=== PATIENT | female | born 1940 | race Caucasian/White ===

== ENCOUNTER 2024-04-25 07:23 | Inpatient (IN) ==
--- NOTE | 2024-03-24 08:51 | PAT Medication Instructions ---
Medication Instructions Date of Service March 24, 2024 Home Medications amlodipine 2.5 mg tablet 2.5 mg PO QAM ascorbic acid (vitamin C) 500 mg tablet (Vitamin C) 500 mg PO QAM budesonide-formoterol HFA 160 mcg-4.5 mcg/actuation aerosol inhaler (Symbicort) 1 inh inhalation DAILY cholecalciferol (vitamin D3) 25 mcg (1,000 unit) tablet (Vitamin D3) 25 mcg PO QAM hydrochlorothiazide 12.5 mg tablet 12.5 mg PO QAM hydroxychloroquine 200 mg tablet (Plaquenil) 300 mg PO QAM losartan 100 mg tablet 100 mg PO QAM hghcgbqitmuf-qbiophgf-aazwir tablet 1 tab PO QAM potassium chloride 20 mEq tablet,extended release(part/cryst) (Klor-Con M) 20 meq PO QAM prednisone 5 mg tablet 5 mg PO QAM tiotropium bromide 18 mcg capsule with inhalation device (Spiriva with HandiHaler) 1 cap inhalation DAILY zinc 1 tab PO QAM Continue as directed budesonide-formoterol HFA 160 mcg-4.5 mcg/actuation aerosol inhaler (Symbicort) 1 inh inhalation DAILY tiotropium bromide 18 mcg capsule with inhalation device (Spiriva with HandiHaler) 1 cap inhalation DAILY ASK your prescriber and surgeon hydroxychloroquine 200 mg tablet (Plaquenil) 300 mg PO QAM DO NOT take the morning of surgery ascorbic acid (vitamin C) 500 mg tablet (Vitamin C) 500 mg PO QAM cholecalciferol (vitamin D3) 25 mcg (1,000 unit) tablet (Vitamin D3) 25 mcg PO QAM hydrochlorothiazide 12.5 mg tablet 12.5 mg PO QAM losartan 100 mg tablet 100 mg PO QAM vqfcivphzaxu-mzmvcwku-pzvmmz tablet 1 tab PO QAM potassium chloride 20 mEq tablet,extended release(part/cryst) (Klor-Con M) 20 meq PO QAM zinc 1 tab PO QAM Take morning of surgery With a small sip of water, OTHERWISE NOTHING TO EAT OR DRINK AFTER MIDNIGHT: amlodipine 2.5 mg tablet 2.5 mg PO QAM prednisone 5 mg tablet 5 mg PO QAM Other Notes If you have any questions please call us at [phone] or [phone] or [phone] or [phone]
--- NOTE | 2024-04-01 09:30 | Anesthesiology Consultation ---
Date of Service April 01, 2024 Assessment & Plan (1) Encounter for pre-operative examination: - Infectious disease screening: Per assessment on 04/01/24- No known recent infectious disease contacts or current infectious disease symptoms. - Patient acceptable risk for surgery pending surgeon-ordered PCP preop evaluation (Dr. Kwadwo Marmolejo/[facility], appt 04/07). Chart Review Chart Review: Patient seen in Pre Admission Testing Teaching & Discussion Pre-Anesthesia Teaching/Discussion Notes: Instructed NPO after midnight before surgery,except medications with 15 cc of water. Medication instructions provided according to the PAT guidelines. History Surgery Operation Date: 04/25/24 09:05 Proposed Procedures p L4-S1 Decompression and Fusion with Spinal Cord Monitoring - Jj Almodovar, Height/Weight Height: 5 ft 1 in Weight: 53.9 kg Allergies Allergy/AdvReac Type Severity Reaction Status Date / Time morphine AdvReac Severe respiratory Verified 03/23/24 12:52 depression Medications Home Medications Medication Instructions Recorded Confirmed Last Taken amlodipine 2.5 mg tablet 2.5 mg PO QAM 03/23/24 03/23/24 Unknown ascorbic acid (vitamin C) 500 mg 500 mg PO QAM 03/23/24 03/23/24 Unknown tablet (Vitamin C) budesonide-formoterol HFA 160 1 inh inhalation DAILY 03/23/24 03/23/24 Unknown mcg-4.5 mcg/actuation aerosol inhaler (Symbicort) cholecalciferol (vitamin D3) 25 25 mcg PO QAM 03/23/24 03/23/24 Unknown mcg (1,000 unit) tablet (Vitamin D3) hydrochlorothiazide 12.5 mg tablet 12.5 mg PO QAM 03/23/24 03/23/24 Unknown hydroxychloroquine 200 mg tablet 300 mg PO QAM 03/23/24 03/23/24 Unknown (Plaquenil) losartan 100 mg tablet 100 mg PO QAM 03/23/24 03/23/24 Unknown mazudwrxvuln-qefsvxer-ratgoa tablet 1 tab PO QAM 03/23/24 03/23/24 Unknown potassium chloride 20 mEq 20 meq PO QAM 03/23/24 03/23/24 Unknown tablet,extended release(part/cryst) (Klor-Con M) prednisone 5 mg tablet 5 mg PO QAM 03/23/24 03/23/24 Unknown tiotropium bromide 18 mcg capsule 1 cap inhalation DAILY 03/23/24 03/23/24 Unknown with inhalation device (Spiriva with HandiHaler) zinc 1 tab PO QAM 03/23/24 03/23/24 Unknown Fish Oil 1 tab PO DAILY 04/01/24 04/01/24 Unknown hydromorphone 4 mg tablet 4 mg PO Q4H PRN Pain 04/01/24 04/01/24 Unknown (Dilaudid) Past Medical History Medical History History of lung cancer 2012, LL lobectomy (no chemo or radiation) Hypertension Rheumatoid arthritis Exercise / Class Metabolic Activity III < 4 Walking/Shop/Light housework Past Surgical History Surgical History Family history of reaction to anesthesia Sister: N/V History of bunionectomy of both great toes History of carpal tunnel surgery of left wrist History of cataract surgery R/L History of cholecystectomy History of hysterectomy History of lobectomy of lung left lower History of repair of hiatal hernia History of tonsillectomy History of total knee replacement bilateral and right side x2 Past Anesthesia History No Hx of Anesthesia Complications * Sister: N/V History of PONV No Hx of PONV and No Hx of Motion Sickness Social History Smoking Status: Never smoker Do You Dip or Chew Tobacco: No Hx Alcohol Use: No Hx Substance Use: No substance use type: does not use Review of Systems Patient denies chest pain, shortness of breath, fever, chills, cough, wheezing, palpitations. Physical Exam Vital Signs BP 112/62 P 76 TEMP 99.0 SP02 96%RA RESP 16 Physical Full cervical extension range of motion. Full TMJ range of motion. TMD 3 finger breaths Mallampati Score III Dentition: upper partial Lungs: clear throughout to auscultation Cardiac: regular rate and rhythm, no murmurs noted Spine: normal Carotid arteries: negative bruit Extremities: no LE edema Lab Results Anesthesia Preop Results Results Anesthesia Widget: WBC 8.51 K/ul (4.8-10.8) 04/01/24 Hgb 11.4 g/dl (12.0-16.0) L 04/01/24 Hct 35.1 % (37.0-47.0) L 04/01/24 Plt 239 K/uL (130-400) 04/01/24 Na 139 mmol/L (136-145) 04/01/24 K 3.7 mmol/L (3.5-5.1) 04/01/24 Cl 104 mmol/L (98-107) 04/01/24 CO2 28 mmol/L (21-32) 04/01/24 BUN 17 mg/dl (6-23) 04/01/24 Creat 1.19 mg/dl (0.6-1.2) 04/01/24 Glucose Level 92 mg/dl (70-99(Fasting)) 04/01/24 PT 11.3 Seconds (9.0-12.0) 04/01/24 PTT 26 Seconds (21-31) 04/01/24 INR 1.0 (0.9-1.1) 04/01/24 Urine Color Yellow 04/01/24 Urine Appearance Clear (Clear) 04/01/24 Urine pH 7.0 (4.5-7.5) 04/01/24 Urine Specific [place] 1.011 (1.000-1.030) 04/01/24 Urine Protein Negative (Negative) 04/01/24 Urine Glucose (UA) Negative (Negative) 04/01/24 Urine Ketones Negative (Negative) 04/01/24 Urine Blood Negative (Negative) 04/01/24 Urine Nitrite Negative (Negative) 04/01/24 Urine Bilirubin Negative (Negative) 04/01/24 Urine Urobilinogen Negative (Negative) 04/01/24 Urine Leukocyte Esterase 1+ (Negative) H 04/01/24 Urine WBC (Auto) 0-5 /hpf (0-5) 04/01/24 Urine RBC (Auto) 0-2 /hpf (0-2) 04/01/24 Urine Hyaline Casts (Auto) 0-2 /lpf (0-2) 04/01/24 Urine Epithelial Cells (Auto) 0-2 /hpf (0-2) 04/01/24 Urine Bacteria (Auto) None Seen (None Seen) 04/01/24 Blood Type O Positive 04/01/24 Antibody Screen NEGATIVE 04/01/24 Testing Electrocardiogram Date: 04/01/24 Findings: + NSR @ (69) Chest X-Ray Date: 04/01/24 FINDINGS: Lung volumes are normal. There is no pneumothorax. Blunting of the left costophrenic angle is noted. Mild left basilar opacity is present. There is no evidence for pulmonary edema. No definite consolidation to suggest pneumonia. Cardiomediastinal silhouette is normal. Old left eighth rib fracture is incidentally noted. IMPRESSION: No acute cardiopulmonary findings. Mild left basilar opacity which likely reflects atelectasis or epicardial fat pad. Other Testing Cervical spine xray Date: 04/01/24 IMPRESSION: 1. No evidence for cervical spine instability during flexion or extension. 2. Severe facet arthrosis within the cervical spine. Mild degenerative disc disease. 3. No cervical spine fractures.
[2024-04-25] MEDS ORDERED: ONDANSETRON INJ 2 MG/ML 2 ML VIAL ONE (08:16)
[2024-04-25] MEDS ORDERED: LIDOCAINE 2% 2 ML VIAL/AMP(20MG/ML) INFIL ONE (08:16)
[2024-04-25] MEDS ORDERED: DEXAMETHASONE SOD INJ 4 MG/ML VIAL ONE (08:16)
[2024-04-25] MEDS ORDERED: PROPOFOL IV EMULSION 10 MG/ML 20 ML VIAL IV ONE (08:16)
[2024-04-25] MEDS ORDERED: fentaNYL citrate PF 100 MCG/2 ML VIAL ONE (08:16)
[2024-04-25] MEDS: LR 15ML/HR IV SCH (08:20)
[2024-04-25] MEDS: CeleBREX 200 MG CAP PO SCH (08:21)
[2024-04-25] MEDS: GABAPENTIN 300 MG CAP PO SCH (08:21)
[2024-04-25] MEDS: ACETAMINOPHEN 500 MG TAB PO SCH (08:21)
[2024-04-25] MEDS: LR 60ML/HR IV SCH (08:22)
--- NOTE | 2024-04-25 08:52 | History & Physical Bridge Note ---
Date of Service April 25, 2024 History & Physical Bridge Note I have examined the patient, reviewed the History & Physical and in the interval since the performance of the History & Physical I have noted the following changes of clinical significance: no changes noted
--- NOTE | 2024-04-25 08:53 | History & Physical Report ---
Date of Service April 25, 2024 Assessment & Plan (1) Neurogenic claudication due to lumbar spinal stenosis: Plan: L4-S1 decompression and fusion History of Present Illness Chief Complaint: Back and bilateral leg pain Primary Care Provider: Kwadwo Marmolejo This is an 83-year-old female who presents with chronic persistent back and leg pain after failing course of nonoperative care is here for surgical intervention. Allergies Allergy/AdvReac Type Severity Reaction Status Date / Time morphine AdvReac Severe respiratory Verified 04/25/24 07:47 depression Home Medications Medication Instructions Recorded Confirmed Type amlodipine 2.5 mg tablet 2.5 mg PO QAM 03/23/24 04/25/24 History ascorbic acid (vitamin C) 500 mg 500 mg PO QAM 03/23/24 04/25/24 History tablet (Vitamin C) budesonide-formoterol HFA 160 1 inh inhalation DAILY 03/23/24 04/25/24 History mcg-4.5 mcg/actuation aerosol inhaler (Symbicort) cholecalciferol (vitamin D3) 25 25 mcg PO QAM 03/23/24 04/25/24 History mcg (1,000 unit) tablet (Vitamin D3) hydrochlorothiazide 12.5 mg tablet 12.5 mg PO QAM 03/23/24 04/25/24 History hydroxychloroquine 200 mg tablet 300 mg PO QAM 03/23/24 04/25/24 History (Plaquenil) losartan 100 mg tablet 100 mg PO QAM 03/23/24 04/25/24 History dwgtqfyytbki-xhaowafo-sboeji tablet 1 tab PO QAM 03/23/24 04/25/24 History potassium chloride 20 mEq 20 meq PO QAM 03/23/24 04/25/24 History tablet,extended release(part/cryst) (Klor-Con M) prednisone 5 mg tablet 5 mg PO QAM 03/23/24 04/25/24 History tiotropium bromide 18 mcg capsule 1 cap inhalation DAILY 03/23/24 04/25/24 History with inhalation device (Spiriva with HandiHaler) zinc 1 tab PO QAM 03/23/24 04/25/24 History Fish Oil 1 tab PO DAILY 04/01/24 04/25/24 History hydromorphone 4 mg tablet 4 mg PO Q4H PRN Pain 04/01/24 04/25/24 History (Dilaudid) Past Med/Surg History Problem List (Updated 04/25/24 @ 08:53 by Jj Almodovar DO) Neurogenic claudication due to lumbar spinal stenosis Encounter for pre-operative examination Medical History History of lung cancer 2012, LL lobectomy (no chemo or radiation) Hypertension Rheumatoid arthritis Surgical History Family history of reaction to anesthesia Sister: N/V History of bunionectomy of both great toes History of carpal tunnel surgery of left wrist History of cataract surgery R/L History of cholecystectomy History of hysterectomy History of lobectomy of lung left lower History of repair of hiatal hernia History of tonsillectomy History of total knee replacement bilateral and right side x2 Social History (System 03/21/24 @ 14:50 by Tammi Riojas) Smoking Status: Never smoker Second Hand Exposure: No; Do You Dip or Chew Tobacco: No; Tobacco Cessation Education Requested by Patient: No Hx Alcohol Use: No Hx Substance Use: No Preferred Language: Frisian Client Advocate Required: No Beliefs That Will Affect Care: None Current Living Situation: Alone Other Information That Helps Us Care for You: No Feels Safe at Home: Yes Safety Concerns: Feels Safe At This Time Assistive Devices: Denture - Upper, Glasses and Walker Physical Exam Physical Exam: Patient is alert and oriented Heart regular in rhythm Lungs clear Results & Data Results & Data Vital Signs (Past 12 Hours) Vital Signs Temp Pulse Resp BP Pulse Ox O2 Del Method 04/25/24 07:46 36.6 C 88 20 166/83 H 99 Room Air
[2024-04-25] MEDS ORDERED: PROMETHAZINE HCL 6.25 MG in SODIUM CHLORIDE 0.9% 50 ML IV PRN (09:04)
[2024-04-25] MEDS ORDERED: ONDANSETRON INJ 2 MG/ML 2 ML VIAL IV PRN ×2 (09:04→13:31)
[2024-04-25] MEDS ORDERED: HYDROmorphone INJ 2 MG/ML SYR/VIAL IV PRN (09:04)
[2024-04-25] MEDS ORDERED: ATROPINE SULFATE 0.1 MG/ML 10ML SYR IV PRN (09:04)
[2024-04-25] MEDS ORDERED: ePHEDrine sulfate 50 MG/ML AMP IV PRN (09:04)
[2024-04-25] MEDS: ceFAZolin 2000MG 2,000 MG/15 ML SYR IV SCH (09:24)
[2024-04-25] MEDS ORDERED: ROCURONIUM BROMIDE 10 MG/ML 5 ML VIAL IV ONE ×6 (09:41→10:57)
[2024-04-25] MEDS ORDERED: SUGAMMADEX SODIUM 200 MG/2 ML VIAL IV ONE (09:45)
[2024-04-25] MEDS ORDERED: ePHEDrine sulfate 50 MG/5 ML SYR ONE (10:06)
[2024-04-25] MEDS: BUPIVACAINE/EPINEPHRINE 0.5% MPF 1:200,000 30 ML VIAL ONE (10:11)
[2024-04-25] MEDS: ceFAZolin 330 MG/ML 1 GM VIAL ONE (10:30)
[2024-04-25] MEDS ORDERED: METOPROLOL TARTRATE 1 MG/ML VIAL IV ONE (10:33)
[2024-04-25] MEDS: FLOSEAL HEMOSTATIC MATRIX 10ML TOP ONE (11:28)
--- NOTE | 2024-04-25 11:39 | Operative Report ---
Post Operative Report Pre & Post Diagnosis Operation Date: 04/25/24 09:05 Pre-Op Diagnosis: Neurogenic claudication due to lumbar spinal stenosis Spondylolisthesis L4-L5 L5-S1 Post-Op Diagnosis: Same I identified the patient and participated in the time-out.: Yes Procedure Operation Date: 04/25/24 09:05 Actual Procedures #1 lumbar decompression bilaterally facetectomies and foraminotomies L3-L4, L4-5 and L5-S1. 2 posterior spinal fusion L4-S1. #3 placed posterior instrumentation L4-S1. #4 interbody fusion L4-L5 L5-S1. #5 placement spiral by 26 mm x 2 at L4-L5 and 11 x 26 mm x 2 at L5-S1. #6 placement locally harvested morselized autograft and posterior gutters. #7 placement is collagen sponge, with Koros in the posterior lateral gutters and os design interbody space. #8 placement of versa wrap of the exposed dura. Surgeon Jj Almodovar, Accounts Receivable Associate Shelley Rahman Estimated Blood Loss 250 Findings Consistent with Post-Op Diagnosis Specimens None Indications This is an 83-year-old female presents problems diagnosis of failed course of nonoperative care is here for surgical invention. Description of Procedure Patient was met with identified informed consent obtained. Patient was then taken to the operative suite underwent intubation placed in a prone position on the Rai table on top of the López frame. All bony promises well-padded I suspected to ensure no external pressure placed upon the. This point the lumbar spine was prepped and draped in the normal sterile fashion. Sharp dissection with the assistance of Bovie cautery performed down to expose the lamina and transverse processes of L4-L5 and the sacral ala bilaterally. From a caudal c ephalad fashion complete laminectomy of L5 was performed including bilateral medial facetectomies and foraminotomies addressing severe spinal stenosis. Then performed a complete laminectomy of L4 to include bilateral medial facetectomies and foraminotomies addressing severe spinal stenosis and lastly partial neurectomy of L3 with bilateral medial facetectomies to address subarticular compression. Pedicle screws then placed in L4-L5 and S1 levels bilaterally with assistance of fluoroscopy and appropriate size dilcia contoured and placed. By way of a transforaminal portion on the right I discectomy of L5-S1 was performed endplates guarded to subcortical bone and bone 11 x 26 mm Spira cage filled with os design bone graft tapped in position. Then proceeded to the left transforaminal region at L5-S1. Discectomy performed endplates guarded to subcortical and bone and a second 11 x 26 mm spiral cage filled with os designed tapped into position. Then proceeded L4-[address] transforaminal position on the left a discectomy was performed endplates guarded to subcortical bleeding bone and 11 x 26 mm Spira cage filled with os design tapped in position. Then proceeded to the transforaminal region at L5-S1 on the right. Discectomy performed endplates guided subcortical main bone and a second 11 x 26 mm Spira cage filled with Oxyzyme tapped into position. The rods were then locked in final position bilaterally. The transverse processes of L4-L5 and sacral ala burred to subcortical bleeding bone. Infuse collagen sponge combined with Koros and locally harvested morselized autograft placed in the posterior lateral gutters. Versa wrap placed over the exposed dura. 15 round LOPEZ drain inserted. The incision was then closed with 1 Vicryl fascia 2-0 Vicryl subcutaneously and 4 Monocryl for final skin closure. Steri-Strips sterile dressing placed. Patient waken taken PACU stable condition. Please note spinal cord monitoring was utilized at the procedure no changes noted. Shelley Rahman was present at the entire surgery The patient positioning complex portion of the surgery and final skin closure. Im ordering 20 grams of Triple [place] Collagen Powder ([id number] [id number]) to treat an incision wound that was caused by a spine procedure. The incision is approximately 2 cm(W) x 4 cm(L) into the joint (D) in size and is a full thickness wound. Triple [place] collagen comes in 1 gram packets so 20 packets were ordered. Given the size of the wound, with light to moderate exudate I chose to order a 20 day supply. The patient will be provided instructions for proper application of the collagen wound kit. The patient will be asked to apply the collagen powder daily and then cover it with sterile dressings dispensed. Collagen was selected as I expect the collagen to attract monocytes and fibroblasts, act as a sacrificial substrate for MMPs, and ultimately proved a matrix for tissue and vessel growth. The collagen will act as a primary dressing in this scenario. It is medically necessary for proper healing of these wounds to improve bioavailability and contact with each wound surface, this is also to help prevent infection of wounds and promote healing ultimately leading to a better healing outcome and limit the risk of infection. I attest to the content of the Intraoperative Record and any orders documented therein. Any exceptions are noted below.
[2024-04-25] MEDS: fentaNYL citrate PF 100 MCG/2 ML VIAL IV PRN (12:13)
--- NOTE | 2024-04-25 12:46 | Anesthesiology Progress Note ---
Date of Service April 25, 2024 Anesthesia Post Procedure Vital Signs Vital Signs: Temp Pulse Resp BP Pulse Ox O2 Del Method O2 Flow Rate 04/25/24 12:30 36.5 C 76 12 146/78 H 95 Nasal Cannula 2 04/25/24 12:20 80 14 131/72 99 Room Air 04/25/24 12:10 76 14 147/71 H 100 Oxymask 4 04/25/24 12:00 76 14 149/76 H 100 Oxymask 4 04/25/24 11:52 36.7 C 61 6 L 125/59 L 100 Oxymask 6 04/25/24 07:46 36.6 C 88 20 166/83 H 99 Room Air Pain Intensity Lower Back: Pain Intensity: 3 Transfer of Care Handoff Completed per policy Notes Mental Status: alert / awake / arousable and participated in evaluation Patient Amnestic to Procedure: Yes Nausea / Vomiting: adequately controlled Pain: adequately controlled Airway Patency, RR, SpO2: stable & adequate BP & HR: stable & adequate Hydration State: stable & adequate Anesthetic Complications: no major complications apparent
--- NOTE | 2024-04-25 13:07 | Fluoroscopy Report ---
FL lumbar spine 2-3V CLINICAL HISTORY: L4-S1 DECOMPRESSION AND FUSION COMPARISON STUDY: None. FLUOROSCOPY TIME: 19 seconds. Ka,r: 8.76 mGy FLUOROSCOPIC IMAGES: 3 FINDINGS: Fluoroscopy was provided during L4-S1 decompression, discectomy and bilateral pedicle screw placement. Hardware is intact. No unexpected radiopaque foreign bodies are present. IMPRESSION: Fluoroscopy providing L4-S1 decompression and fusion. ACT 112: Negative or not required by law. Electronically signed by: Gilmar Latif M.D. 04/25/2024 1:06 PM
[2024-04-25] MEDS ORDERED: MoRPHine SULFATE 2 MG/ML CARP IV PRN (13:31)
[2024-04-25] MEDS ORDERED: METOCLOPRAMIDE HCL INJ 5 MG/ML 2 ML VIAL IV PRN (13:31)
[2024-04-25] MEDS ORDERED: DO NOT ADMINISTER FLU VACCINE PRN (13:31)
[2024-04-25] MEDS ORDERED: hydrOXYzine HCl 25 MG TAB PO PRN (13:31)
[2024-04-25] MEDS ORDERED: LORazepam 2 MG/1 ML VIAL IV PRN (13:31)
[2024-04-25] MEDS ORDERED: bisacodyL 10 MG SUPP PR PRN (13:31)
[2024-04-25] MEDS ORDERED: ACETAMINOPHEN 1,000 MG/100 ML VIAL IV PRN (13:31)
[2024-04-25] MEDS ORDERED: diphenhydrAMINE Capsule 25 MG CAP PO PRN (13:31)
[2024-04-25] MEDS ORDERED: SOD PHOSPHATE/SOD BIPHOSPHATE ENEMA 132 ML BTL PR PRN (13:31)
[2024-04-25] MEDS ORDERED: NALOXONE HCL 0.4 MG/1 ML VIAL/CARP IV PRN (13:31)
[2024-04-25] MEDS ORDERED: DO NOT ADMINISTER PNEUMOCOCCAL VACCINE PRN (13:31)
[2024-04-25] MEDS ORDERED: MAGNESIUM HYDROXIDE SUSP 30 ML UDC PO PRN (13:31)
[2024-04-25] MEDS: traMADol HCL 50 MG TABLET PO PRN (14:10)
[2024-04-25] MEDS: ceFAZolin 1000MG 1,000 MG/7.5 ML SYR IV SCH (17:27)
[2024-04-25] MEDS: DOCUSATE SODIUM/SENNA 50/8.6MG TAB PO SCH (20:27)
[2024-04-25] MEDS: LORazepam 0.5 MG TAB PO PRN (20:28)
[2024-04-26] MEDS: POLYETHYLENE (MIRALAX) 17 GM PACK PO SCH (05:53)
[2024-04-26] MEDS: ACETAMINOPHEN 500 MG TAB PO PRN (06:18)
[2024-04-26 07:32] LABS: Basophils # (auto) 0.01 K/uL (0.00-0.20); Basophils % (auto) 0.1 %; Hematocrit (blood only) 30.1 % (37.0-47.0); Hemoglobin 10.4 g/dl (12.0-16.0); Immature Granulocytes # (auto) 0.05 K/uL (0.01-0.20); Immature Granulocytes % (auto) 0.4 %; Lymphocytes # (auto) 0.73 K/uL (1.20-3.40); Lymphocytes % (auto) 5.4 %; Mean Corpuscular Hemoglobin 32.4 pg (25.0-34.0); Mean Corpuscular Hgb Conc 34.6 g/dL (32.0-36.0); Mean Corpuscular Volume 93.8 fL (80.0-100.0); Mean Platelet Volume 10.1 fL (9.4-12.4); Monocytes # (auto) 0.86 K/uL (0.11-0.59); Monocytes % (auto) 6.4 %; Neutrophils # (auto) 11.75 K/uL (1.40-6.50); Neutrophils % (auto) 87.7 %; Platelet Count 174 K/uL (130-400); RDW Coefficient of Variation 11.8 % (11.5-14.5); RDW Standard Deviation 40.5 fL (36.4-46.3); Red Blood Count 3.21 M/uL (4.20-5.40)
[2024-04-26] MEDS: LOSARTAN POTASSIUM 50 MG TAB PO SCH (07:38)
[2024-04-26 07:39] LABS: BUN Creatinine Ratio 17.4 (10-20); Calcium 8.7 mg/dl (8.6-10.3); Creatinine Clr Calc Pharmacy 19.6 ml/min; Potassium 4.2 mmol/L (3.5-5.1)
[2024-04-26] MEDS: amLODIPine BESYLATE 5 MG TAB PO SCH (07:39)
[2024-04-26] MEDS: ASCORBIC ACID 500 MG TAB PO SCH (07:40)
[2024-04-26] MEDS: CHOLECALCIFEROL 25 MCG (1000 UNITS) TAB PO SCH (07:40)
[2024-04-26] MEDS: FLUTICASONE/VILANTEROL 200/25MCG 14 PUFFS/INHALER INH SCH (07:40)
[2024-04-26] MEDS: CEROVITE ADV FORMULA TAB PO SCH (07:41)
[2024-04-26] MEDS: hydroCHLOROthiazide 25 MG TAB PO SCH (07:41)
[2024-04-26] MEDS: UMECLIDINIUM BROMIDE 62.5MCG/BLISTER 7 PUFFS/INHALER INH SCH (07:42)
[2024-04-26] MEDS: POTASSIUM CHLORIDE CRTAB 20 MEQ TABCR PO SCH (08:22)
--- NOTE | 2024-04-26 08:30 | Orthopedic Progress Note ---
Date of Service April 26, 2024 Assessment & Plan (1) Neurogenic claudication due to lumbar spinal stenosis: Plan: At this time we will initiate physical therapy. I have her assessed for possible rehab placement. Admission and Anticipated Discharge Date Admission Date: April 25, 2024 Subjective Patient's back pain is controlled. Leg symptoms markedly improved. Physical Exam Physical Exam: Patient is currently in bed. She is comfortable. Good strength testing. Results & Data Vital Signs (Past 12 Hours) Vital Signs Temp Pulse Pulse Resp BP Pulse Ox O2 Del Method 04/26/24 07:41 36.8 C 73 12 116/71 98 Room Air 04/26/24 04:07 36.4 C L 84 18 112/69 95 Room Air 04/26/24 00:20 36.6 C 71 16 107/68 97 Room Air
--- NOTE | 2024-04-26 13:41 | Consultation ---
Date of Consultation April 26, 2024 Assessment & Plan (1) Rheumatoid arthritis: (2) Hypertension: (3) History of lung cancer: (4) Neurogenic claudication due to lumbar spinal stenosis: Plan Assessment and plan: Lumbar spinal stenosis S/p L4-S1 decompression 04/25: Pain control/DVT prophylaxis/PT/OT per primary team AKIlikely prerenal: Creatinine WNL last month, 1.6 this a.m. Hold losartan/HCTZ, 500 cc LR x 1, repeat CMP in a.m. Hx HTN: Continue amlodipine, hold HCTZ/losartan with MITESH Hx RA: Hold Plaquenil until okay with Ortho to continue Hx lung CA s/p left lower lobe lobectomy: Continue home inhalers A total of 60 minutes was spent on chart review/reviewing diagnostic data/facilitating plan of care/discussion with consultants Full code DVT prophylaxis: SCDs, further DVT prophylaxis per primary team Supervising Physician Co-Signing Physician Notes Patient was seen and examined at bedside as a medical consult status post lumbar spinal repair. Patient hemodynamically stable, noted to have MITESH, hold losartan and HCTZ, will give some IV fluid. Repeat CMP in AM. Watch out for acute blood loss anemia. PT/OT, pain management and DVT prophylaxis per primary team. Patient reports improvement in her RLE radicular signs and symptoms, reports operative pain under control. Eating okay, is moving gas, has not moved bowel. On exam: GENERAL: Alert and oriented x3. NAD, on RA. HEENT: No pallor, no icterus. Pupils equal, round and reactive to light. Oral mucosa moist. NECK: No JVD, no neck masses. HEART: S1 and S2 heard. Regular rate and rhythm. No murmur, no gallop. RESPIRATORY SYSTEM: Normal AP diameter. No accessory muscle use. No wheezing, no crackles. ABDOMEN: Soft, bowel sounds present, nontender, no distention. CENTRAL NERVOUS SYSTEM: No facial droop. Speech is clear. Obeys simple commands. Moves extremities. EXTREMITIES: No edema, no erythema seen. Lower back with clean dressing without soakage. LOPEZ drain with minimal serosanguineous collection noted. I have seen and examined the patient and have discussed the case with the provider above. I agree with the assessment and plan as stated. Time spent: 15 min. History of Present Illness Reason for Consultation: Postop medical management Attending Physician: Jj Almodovar DO History of Present Illness The patient is an 83-year-old female with a past medical history of RA, lung CA s/p lobectomy of left lower lung, HTN who presents to the hospital on 04/25/2024 s/p L4-S1 decompression and fusion. We are consulted for postop medical management. On exam, the patient reports her pain is controlled. She denies any shortness of breath/chest pain/fever/chills/nausea/vomiting/abdominal pain. Labs are fairly stable, mild leukocytosis noted, patient does have a mild MITESH with a creatinine of 1.61 Allergies Allergy/AdvReac Type Severity Reaction Status Date / Time morphine AdvReac Severe respiratory Verified 04/25/24 07:47 depression Home Medications Medication Instructions Recorded Confirmed Type amlodipine 2.5 mg tablet 2.5 mg PO QAM 03/23/24 04/25/24 History ascorbic acid (vitamin C) 500 mg 500 mg PO QAM 03/23/24 04/25/24 History tablet (Vitamin C) budesonide-formoterol HFA 160 1 inh inhalation DAILY 03/23/24 04/25/24 History mcg-4.5 mcg/actuation aerosol inhaler (Symbicort) cholecalciferol (vitamin D3) 25 25 mcg PO QAM 03/23/24 04/25/24 History mcg (1,000 unit) tablet (Vitamin D3) hydrochlorothiazide 12.5 mg tablet 12.5 mg PO QAM 03/23/24 04/25/24 History hydroxychloroquine 200 mg tablet 300 mg PO QAM 03/23/24 04/25/24 History (Plaquenil) losartan 100 mg tablet 100 mg PO QAM 03/23/24 04/25/24 History bpugdtxlxhpj-bpeztock-vaxtly tablet 1 tab PO QAM 03/23/24 04/25/24 History potassium chloride 20 mEq 20 meq PO QAM 03/23/24 04/25/24 History tablet,extended release(part/cryst) (Klor-Con M) prednisone 5 mg tablet 5 mg PO QAM 03/23/24 04/25/24 History tiotropium bromide 18 mcg capsule 1 cap inhalation DAILY 03/23/24 04/25/24 History with inhalation device (Spiriva with HandiHaler) zinc 1 tab PO QAM 03/23/24 04/25/24 History Fish Oil 1 tab PO DAILY 04/01/24 04/25/24 History hydromorphone 4 mg tablet 4 mg PO Q4H PRN Pain 04/01/24 04/25/24 History (Dilaudid) oxycodone 5 mg tablet 5 mg PO Q6H PRN pain #30 tabs 04/26/24 Rx tramadol 50 mg tablet 50 mg PO Q6H PRN pain, moderate 04/26/24 Rx #30 tabs Patient History Medical History History of lung cancer 2012, LL lobectomy (no chemo or radiation) Hypertension Rheumatoid arthritis Surgical History Family history of reaction to anesthesia Sister: N/V History of bunionectomy of both great toes History of carpal tunnel surgery of left wrist History of cataract surgery R/L History of cholecystectomy History of hysterectomy History of lobectomy of lung left lower History of repair of hiatal hernia History of tonsillectomy History of total knee replacement bilateral and right side x2 Social History (System 03/21/24 @ 14:50 by Tammi Riojas) Smoking Status: Never smoker Second Hand Exposure: No; Do You Dip or Chew Tobacco: No; Tobacco Cessation Education Requested by Patient: No Hx Alcohol Use: No Hx Substance Use: No Preferred Language: [place] Communication Ability: Effective Crop Puller Required: No Beliefs That Will Affect Care: None Current Living Situation: Alone Other Information That Helps Us Care for You: No Feels Safe at Home: Yes Safety Concerns: Feels Safe At This Time Assistive Devices: Walker Review of Systems Review of Systems: All systems reviewed & are unremarkable except as noted in HPI & below Physical Exam Constitutional: WD/WN, vitals as above Eyes: PERRL, conjunctivae normal, anicteric sclerae ENMT: external ear and nose normal, oropharynx normal Neck: trachea midline, no thyromegaly Respiratory: normal respiratory effort, lungs clear to auscultation Cardiovascular: RRR, no murmur, no edema Gastrointestinal (Abdomen): normal bowel sounds, soft, nontender, no hepatosplenomegaly ([place] catheter in place) Musculoskeletal: no cyanosis or clubbing, extremities motor strength 5/5 (Drain in place) Skin: no rashes, warm and dry Neurologic: PERRL, EOMI, accommodation nl, no face palsy, no dysarthria Psychiatric: A+Ox3, euthymic affect Lymphatic: no cervical or axillary lymphadenopathy Results & Data Vital Signs (Past 12 Hours) Vital Signs Temp Pulse Pulse Resp BP Pulse Ox O2 Del Method 04/26/24 11:22 36.4 C L 73 12 100/57 L 99 Room Air 04/26/24 07:41 36.8 C 73 12 116/71 98 Room Air 04/26/24 04:07 36.4 C L 84 18 112/69 95 Room Air Diagnostic Findings Laboratory Results WBC 13.40 K/ul (4.8-10.8) H 04/26/24 06:57 RBC 3.21 M/uL (4.20-5.40) L 04/26/24 06:57 Hgb 10.4 g/dl (12.0-16.0) L 04/26/24 06:57 Hct 30.1 % (37.0-47.0) L 04/26/24 06:57 MCV 93.8 fL (80.0-100.0) 04/26/24 06:57 MCH 32.4 pg (25.0-34.0) 04/26/24 06:57 MCHC 34.6 g/dL (32.0-36.0) 04/26/24 06:57 RDW Std Deviation 40.5 fL (36.4-46.3) 04/26/24 06:57 RDW Coeff of Luli 11.8 % (11.5-14.5) 04/26/24 06:57 Plt Count 174 K/uL (130-400) 04/26/24 06:57 MPV 10.1 fL (9.4-12.4) 04/26/24 06:57 Immature Gran % (Auto) 0.4 % 04/26/24 06:57 Neut % (Auto) 87.7 % 04/26/24 06:57 Lymph % (Auto) 5.4 % 04/26/24 06:57 [place] % (Auto) 6.4 % 04/26/24 06:57 Eos % (Auto) 0.0 % 04/26/24 06:57 Baso % (Auto) 0.1 % 04/26/24 06:57 Neut # (Auto) 11.75 K/uL (1.40-6.50) H 04/26/24 06:57 Lymph # (Auto) 0.73 K/uL (1.20-3.40) L 04/26/24 06:57 [place] # (Auto) 0.86 K/uL (0.11-0.59) H 04/26/24 06:57 Eos # (Auto) 0.00 K/uL (0.00-0.50) 04/26/24 06:57 Baso # (Auto) 0.01 K/uL (0.00-0.20) 04/26/24 06:57 Immature Gran # (Auto) 0.05 K/uL (0.01-0.20) 04/26/24 06:57 Sodium 137 mmol/L (136-145) 04/26/24 06:57 Potassium 4.2 mmol/L (3.5-5.1) 04/26/24 06:57 Chloride 101 mmol/L (98-107) 04/26/24 06:57 Carbon Dioxide 28 mmol/L (21-32) 04/26/24 06:57 Anion Gap 8 (3-11) 04/26/24 06:57 BUN 28 mg/dl (6-23) H 04/26/24 06:57 Creatinine 1.61 mg/dl (0.6-1.2) H 04/26/24 06:57 Est Cr Clr Drug Dosing 19.6 ml/min 04/26/24 06:57 eGFR 31.37 04/26/24 06:57 BUN/Creatinine Ratio 17.4 (10-20) 04/26/24 06:57 Glucose 130 mg/dl (70-99(Fasting)) H 04/26/24 06:57 Calcium 8.7 mg/dl (8.6-10.3) 04/26/24 06:57 Blood Type O Positive 04/25/24 07:38 Antibody Screen NEGATIVE 04/25/24 07:38 Crossmatch See Detail 04/25/24 07:38 Impressions Lumbar Spine X-Ray 04/25/24 09:05 FL lumbar spine 2-3V CLINICAL HISTORY: L4-S1 DECOMPRESSION AND FUSION COMPARISON STUDY: None. FLUOROSCOPY TIME: 19 seconds. Ka,r: 8.76 mGy FLUOROSCOPIC IMAGES: 3 FINDINGS: Fluoroscopy was provided during L4-S1 decompression, discectomy and bilateral pedicle screw placement. Hardware is intact. No unexpected radiopaque foreign bodies are present. IMPRESSION: Fluoroscopy providing L4-S1 decompression and fusion. ACT 112: Negative or not required by law. Electronically signed by: Gilmar Latif M.D. 04/25/2024 1:06 PM Chest X-Ray 04/01/24 07:57 XR chest Pre-admission PA/Lat CLINICAL HISTORY: Preoperative evaluation. COMPARISON STUDY: No previous studies for comparison. FINDINGS: Lung volumes are normal. There is no pneumothorax. Blunting of the left costophrenic angle is noted. Mild left basilar opacity is present. There is no evidence for pulmonary edema. No definite consolidation to suggest pneumonia. Cardiomediastinal silhouette is normal. Old left eighth rib fracture is incidentally noted. IMPRESSION: 1. No acute cardiopulmonary findings. 2. Mild left basilar opacity which likely reflects atelectasis or epicardial fat pad. ACT 112: Negative or not required by law. Electronically signed by: Gilmar Latif M.D. 04/01/2024 10:37 AM Spine Flexion/Extension X-Ray 04/01/24 09:34 XR cervical spine w flex/ext CLINICAL HISTORY: Rheumatoid arthritis. COMPARISON STUDY: No previous studies for comparison. FINDINGS: Alignment of the cervical spine is anatomic. There is no evidence for cervical spine instability during flexion or extension. C1-C2 alignment remains intact. No fractures are identified. There is severe multilevel facet arthrosis and mild disc space narrowing and osteophytosis within the cervical spine. IMPRESSION: 1. No evidence for cervical spine instability during flexion or extension. 2. Severe facet arthrosis within the cervical spine. Mild degenerative disc disease. 3. No cervical spine fractures. ACT 112: Negative or not required by law. Electronically signed by: Gilmar Latif M.D. 04/01/2024 10:49 AM
[2024-04-26] MEDS: LACTATED RINGER'S 500 ML IV SCH (14:03)
[2024-04-27] MEDS: MoRPHine SULFATE 4 MG/ML 1 ML CARP\\VIAL IV PRN (01:27)
[2024-04-27 07:27] LABS: Albumin Globulin Ratio 1.6 (0.9-2); Albumin Level 3.1 gm/dl (3.4-5.0); BUN Creatinine Ratio 24.2 (10-20); Bilirubin,Total 0.5 mg/dl (0.2-1.0); Calcium 8.7 mg/dl (8.6-10.3); Creatinine Clr Calc Pharmacy 20.7 ml/min; Globulin 1.9 gm/dl (2.5-4.0); Potassium 3.8 mmol/L (3.5-5.1)
--- NOTE | 2024-04-27 11:08 | Orthopedic Progress Note ---
Date of Service April 27, 2024 Assessment & Plan (1) Neurogenic claudication due to lumbar spinal stenosis: Plan: At this time the patient is tolerating physical therapy very well. Her pain is controlled. LOPEZ drain decreasing. Anticipate possible discharge home tomorrow. Admission and Anticipated Discharge Date Admission Date: April 25, 2024 Subjective Back pain is controlled leg pain improved Physical Exam Physical Exam: Patient is ambulating the halls with her walker. She is very comfortable. Good strength testing. Results & Data Vital Signs (Past 12 Hours) Vital Signs Temp Pulse Resp BP Pulse Ox O2 Del Method 04/27/24 08:26 36.7 C 74 16 130/70 96 Room Air
--- NOTE | 2024-04-27 14:55 | Hospitalist Progress Note ---
Date of Service April 27, 2024 Assessment & Plan (1) Rheumatoid arthritis: (2) Hypertension: (3) History of lung cancer: (4) Neurogenic claudication due to lumbar spinal stenosis: Plan Patient is an 83-year-old female with a past medical history of RA, lung CA s/p lobectomy of left lower lung, HTN who presents to the hospital on 04/25/2024 and is s/p L4-S1 decompression and fusion. Lumbar spinal stenosis S/p L4-S1 decompression 04/25 Pain management per ortho Wound management per ortho PT/OT as appropriate DVT prophylaxis per ortho Incentive spirometry Monitor H&H for acute blood loss anemia; Pre-op Hgb: 11.4, has been stable postop Continue to monitor Acute kidney Injury Creatinine WNL last month, 1.6 on exam Downtrending Hold losartan/HCTZ, 500 cc LR x 1 on initial exam Will give 1L NSS at 80 Continue to monitor Hx HTN: Continue amlodipine, hold HCTZ/losartan with MITESH BP has been stable Hx RA: Hold Plaquenil at this time Resume as able Hx lung CA s/p left lower lobe lobectomy: Continue home inhalers Diet: regular DVT prophylaxis: SCDs, further DVT prophylaxis per primary team Dispo: per PT/OT recs Admission and Anticipated Discharge Date Admission Date: April 25, 2024 Subjective patient was seen sitting up in bed, on her phone. States she has been moving her bowels had an episode overnight where she had bowel movements all over the floor. States she was still sore at the incision site but her pain is well-controlled Review of Systems Review of Systems: All systems reviewed & are unremarkable except as noted in Subjective Physical Exam Physical Exam: General: Alert, oriented. No acute distress Psych: Appropriate mood and affect Neuro: difficulty with movements in the bed HEENT: NC/AT CV: RRR Resp: Breath sounds clear bilaterally, no increased effort of breathing Abdomen: Soft, nontender Extremities: No edema in lower extremities bilaterally. Results & Data Results & Data Vital Signs (Past 12 Hours) Vital Signs Temp Pulse Resp BP Pulse Ox O2 Del Method 04/27/24 12:00 36.4 C L 77 17 140/72 99 Room Air 04/27/24 08:26 36.7 C 74 16 130/70 96 Room Air
[2024-04-27] MEDS: SODIUM CHLORIDE 0.9% 1,000 ML IV SCH (20:18)
[2024-04-28 07:35] LABS: BUN Creatinine Ratio 23.7 (10-20); Calcium 8.5 mg/dl (8.6-10.3); Creatinine Clr Calc Pharmacy 24.1 ml/min; Potassium 4.1 mmol/L (3.5-5.1)
[2024-04-28 07:49] LABS: Hematocrit (blood only) 27.7 % (37.0-47.0); Mean Corpuscular Hemoglobin 31.9 pg (25.0-34.0); Mean Corpuscular Hgb Conc 32.5 g/dL (32.0-36.0); Mean Corpuscular Volume 98.2 fL (80.0-100.0); Mean Platelet Volume 10.8 fL (9.4-12.4); Platelet Count 146 K/uL (130-400); RDW Coefficient of Variation 12.2 % (11.5-14.5); RDW Standard Deviation 44.1 fL (36.4-46.3); Red Blood Count 2.82 M/uL (4.20-5.40)
--- NOTE | 2024-04-28 08:44 | Hospitalist Progress Note ---
Date of Service April 28, 2024 Assessment & Plan (1) Rheumatoid arthritis: (2) Hypertension: (3) History of lung cancer: (4) Neurogenic claudication due to lumbar spinal stenosis: Plan Patient is an 83-year-old female with a past medical history of RA, lung CA s/p lobectomy of left lower lung, HTN who presents to the hospital on 04/25/2024 and is s/p L4-S1 decompression and fusion. Lumbar spinal stenosis S/p L4-S1 decompression 04/25 Pain management per ortho Wound management per ortho PT/OT as appropriate DVT prophylaxis per ortho Incentive spirometry Monitor H&H for acute blood loss anemia; Pre-op Hgb: 11.4, has been stable postop Continue to monitor Acute kidney Injury Creatinine WNL last month, 1.6 on exam Downtrending Hold losartan/HCTZ, 500 cc LR x 1 on initial exam Will give 1L NSS at 80 Continue to monitor Improving Hx HTN: Continue amlodipine, hold HCTZ/losartan with MITESH BP has been stable Hx RA: Hold Plaquenil at this time Resume as able Hx lung CA s/p left lower lobe lobectomy: Continue home inhalers Diet: regular DVT prophylaxis: SCDs, further DVT prophylaxis per primary team Dispo: per PT/OT recs Admission and Anticipated Discharge Date Admission Date: April 25, 2024 Subjective Patient was seen in the AM. Awaken from sleep, noted no acute issues. States that tshe was having no further episodes of fecal incontinence. Review of Systems Review of Systems: All systems reviewed & are unremarkable except as noted in Subjective Physical Exam Physical Exam: General: Alert, oriented. No acute distress Psych: Appropriate mood and affect Neuro: difficulty with movements in the bed HEENT: NC/AT CV: RRR, + murmur Resp: Breath sounds clear bilaterally, no increased effort of breathing Abdomen: Soft, nontender Extremities: edema in lower extremities bilaterally. Results & Data Results & Data Vital Signs (Past 12 Hours) Vital Signs Temp Pulse Resp BP Pulse Ox O2 Del Method 04/28/24 07:25 36.7 C 79 16 157/76 H 95 Room Air 04/27/24 21:44 36.8 C 76 16 125/61 93 Room Air Diagnostic Findings Lumbar Spine X-Ray 04/25/24 09:05 FL lumbar spine 2-3V CLINICAL HISTORY: L4-S1 DECOMPRESSION AND FUSION COMPARISON STUDY: None. FLUOROSCOPY TIME: 19 seconds. Ka,r: 8.76 mGy FLUOROSCOPIC IMAGES: 3 FINDINGS: Fluoroscopy was provided during L4-S1 decompression, discectomy and bilateral pedicle screw placement. Hardware is intact. No unexpected radiopaque foreign bodies are present. IMPRESSION: Fluoroscopy providing L4-S1 decompression and fusion. ACT 112: Negative or not required by law. Electronically signed by: Gilmar Latif M.D. 04/25/2024 1:06 PM Chest X-Ray 04/01/24 07:57 XR chest Pre-admission PA/Lat CLINICAL HISTORY: Preoperative evaluation. COMPARISON STUDY: No previous studies for comparison. FINDINGS: Lung volumes are normal. There is no pneumothorax. Blunting of the left costophrenic angle is noted. Mild left basilar opacity is present. There is no evidence for pulmonary edema. No definite consolidation to suggest pneumonia. Cardiomediastinal silhouette is normal. Old left eighth rib fracture is incidentally noted. IMPRESSION: 1. No acute cardiopulmonary findings. 2. Mild left basilar opacity which likely reflects atelectasis or epicardial fat pad. ACT 112: Negative or not required by law. Electronically signed by: Gilmar Latif M.D. 04/01/2024 10:37 AM Spine Flexion/Extension X-Ray 04/01/24 09:34 XR cervical spine w flex/ext CLINICAL HISTORY: Rheumatoid arthritis. COMPARISON STUDY: No previous studies for comparison. FINDINGS: Alignment of the cervical spine is anatomic. There is no evidence for cervical spine instability during flexion or extension. C1-C2 alignment remains intact. No fractures are identified. There is severe multilevel facet arthrosis and mild disc space narrowing and osteophytosis within the cervical spine. IMPRESSION: 1. No evidence for cervical spine instability during flexion or extension. 2. Severe facet arthrosis within the cervical spine. Mild degenerative disc disease. 3. No cervical spine fractures. ACT 112: Negative or not required by law. Electronically signed by: Gilmar Latif M.D. 04/01/2024 10:49 AM
[2024-04-28] MEDS: LACTATED RINGER'S 1,000 ML IV SCH (09:28)
--- NOTE | 2024-04-28 10:15 | Orthopedic Progress Note ---
Date of Service April 28, 2024 Assessment & Plan (1) Neurogenic claudication due to lumbar spinal stenosis: Plan: At this point we will continue physical therapy. I will have her dressing change and drain removed today. Anticipate discharge home tomorrow. Admission and Anticipated Discharge Date Admission Date: April 25, 2024 Subjective Patient is ambulating well but struggling with is some significant soreness in her back today. Physical Exam Physical Exam: Patient is up and ambulating with her walker. Good strength testing. Results & Data Vital Signs (Past 12 Hours) Vital Signs Temp Pulse Resp BP Pulse Ox O2 Del Method 04/28/24 07:25 36.7 C 79 16 157/76 H 95 Room Air
[2024-04-28] MEDS: ONDANSETRON 4 MG OD TAB PO PRN (21:35)
[2024-04-29 07:32] LABS: Hematocrit (blood only) 26.8 % (37.0-47.0); Hemoglobin 9.1 g/dl (12.0-16.0); Mean Corpuscular Hemoglobin 32.4 pg (25.0-34.0); Mean Corpuscular Volume 95.4 fL (80.0-100.0); Mean Platelet Volume 10.6 fL (9.4-12.4); Platelet Count 163 K/uL (130-400); RDW Coefficient of Variation 11.7 % (11.5-14.5); RDW Standard Deviation 41.1 fL (36.4-46.3); Red Blood Count 2.81 M/uL (4.20-5.40); White Blood Count 8.14 K/ul (4.8-10.8)
[2024-04-29 07:48] LABS: BUN Creatinine Ratio 21.1 (10-20); Calcium 8.5 mg/dl (8.6-10.3); Creatinine Clr Calc Pharmacy 35.1 ml/min; Potassium 3.9 mmol/L (3.5-5.1)
--- NOTE | 2024-04-29 11:47 | Discharge Summary ---
Date of Service April 29, 2024 Admission HPI Per Admitting Provider This is an 83-year-old female who presents with chronic persistent back and leg pain after failing course of nonoperative care is here for surgical intervention. Principal Diagnosis Lumbar spinal stenosis with neurogenic claudication Discharge Data Allergies Allergy/AdvReac Type Severity Reaction Status Date / Time morphine AdvReac Severe respiratory Verified 04/25/24 07:47 depression Consultations 04/25/24 13:31 Consult Hospitalist Routine Procedures Performed Operation Date: 04/25/24 09:05 Actual Procedures p L4-S1 Decompression and Fusion with Spinal Cord Monitoring(Not Applicable) - Jj Almodovar DO Ordered Studies 04/25/24 09:05 [place] lumbar spine 2-3V Routine Hospital Course (1) Neurogenic claudication due to lumbar spinal stenosis: Patient went multilevel lumbar decompression and fusion tolerated so stayed orthopedic floor postoperative. Postop patient progressed steadily throughout her stay. LOPEZ drain decreased appropriate. Excellent strength testing. Pain well-controlled. Subsidy discharged home. Discharge orders and instructions from the chart for further review. Total Time Total Time Spent Total Time Spent (In Minutes): 20 minutes Discharge Plan Discharge Items Patient Disposition: Home - Self-Care Reason For Visit: Lumbar Pain, Lumbar Disc Disease with Radiculopath Discharge Diagnosis: Lumbar spinal stenosis with neurogenic claudication Activity: As commented below Non-emergency contact: Primary Care Provider Call non-emergency contact if: you have any medication questions Follow-up/Referrals: PCP,NO [Physician] - Diet: Regular Addtl Attending Provider Instructions: ACTIVITY RECOMMENDATIONS: SELF CARE INSTRUCTIONS AFTER THORACIC/LUMBAR FUSIONS 1. You may walk to your tolerance. It is good exercise for your legs and back. Expect some back and intermittent leg aches and pains. 2. You may perform "counter-top" level activities (make a sandwich, ericka with a project, etc.). 3. No bending or lifting of more than 10 pounds or back twisting of any nature (roll like a log when turning in bed). 4. You may ride in a car for 20-30 minutes at a time. No driving until after your first visit with your doctor. 5. Frequent changes of position and restricting sitting to 30 minutes at a time will help limit the amount of back spasms and stiffness you may experience. 6. You may discontinue the use of ambulatory aids (cane, crutches, etc.) once your strength and confidence allow. 7. You may check inspector the shower and let water strike your incision when you arrive home at least once daily. Do not take a tub bath, sit in a hot tub or go into a swimming pool until after your first recheck in the office. 8. You may resume previous diet. SPECIAL CARE INSTRUCTIONS: VERY IMPORTANT TO READ AND REVIEW A. Your surgical incision has been closed with a cosmetic suture under the skin that will dissolve in about 6 weeks. In 14 days, you can use a pair of clean scissors and cut the suture that is left outside of the skin at the ends of your incision. 1. The small skin tapes can be removed 7 days after surgery if they have not fallen off by that point. 2. You may keep the wound open to air as much as possible to promote healing after post-op day number 5 unless told otherwise by your doctor. 3. If you think the wound looks like it is becoming infected (redness or worsening drainage) and/or you are experiencing fever, chill or worsening back pain and muscle spasms, contact the office so that we may evaluate you as soon as possible. B. Complications are uncommon, but please contact us if you have any signs or symptoms of: 1. wound infection (fever higher than 102.5 degrees F, redness, separation of wound, drainage, or increasing pain from the incision) 2. blood clots in legs (pain, swelling, redness and warmth in legs) 3. urinary tract infection (fever higher than 102.5 degrees F, burning upon urination or increased frequency of urination) 4. nerve problems (inability to walk on your toes or heels, numbness, loss of bowel or bladder control) 5. any other symptoms that concern you C. Please call the office at if you have any concerns or questions about your operation or recovery. D. No smoking! Smoking drastically decreases the chance of a solid fusion. E. Do not take any anti-inflammatory medications (Indocin, Advil, Motrin, Aspirin, Naprosyn, etc.) as these may inhibit the chance of a solid fusion. Tylenol is okay to take for pain. MANAGING PAIN AFTER SPINAL SURGERY 1. Narcotic medication is intended for short-term use and will be provided for surgical pain. Surgical pain usually lasts for a period of 4-6 weeks. Narcotic medication includes Percocet, Vicodin, Darvocet, Tylenol #3 or Lortab. 2. Longer-term pain is more appropriately treated with non-narcotic medication such as Tylenol ES. 3. Muscle spasm is not appropriately treated with narcotics. Muscle relaxers such as Soma, Flexeril or Skelaxin can be used along with Tylenol ES. 4. Remember that we all live with some "aches and pains". This is not unusual or uncommon after an injury or as we get older. a. Back pain is expected and may include muscle spasms for 4 to 6 weeks after surgery. The pain should gradually improve. If the pain worsens for no apparent reason, please contact the office. b. Intermittent leg pain may also be experienced and should not be concerned about unless it worsens for no apparent reason. If so, please contact the office. 5. We will provide appropriate medication within the normal guidelines of their prescribed use. We will also be very cautious and aware of potential abuse and extended duration of patients' medication needs. a. Pain medications are for your comfort and to assist with sleep and rest so that the tissue can heal. They are not provided in order to return to normal activity and should not be used through the day. To do so or worsening pain at night can result from ongoing tissue damage and development of tolerance to the prescribed medicine. 6. Please allow 2-3 days to process refills. Prescriptions will not be mailed but must be picked up at the office. FOLLOW UP VISIT: Keep your scheduled follow-up appointment. Any questions, please call the office at . Pending Studies at Discharge: No Stand-Alone Forms: My [facility] [employer] Shipping [employer], Smoking Cessation Medications and DC Order Prescriptions: New tramadol 50 mg tablet 50 mg PO Q6H PRN (Reason: pain, moderate) Qty: 30 0RF oxycodone 5 mg tablet 5 mg PO Q6H PRN (Reason: pain) Qty: 30 0RF Continued prednisone 5 mg Tablet 5 mg PO QAM amlodipine 2.5 mg Tablet 2.5 mg PO QAM potassium chloride [Klor-Con M20] 20 mEq Tablet,Er Particles/Crystals 20 meq PO QAM ascorbic acid (vitamin C) [Vitamin C] 500 mg Tablet 500 mg PO QAM hydroxychloroquine [Plaquenil] 200 mg Tablet 300 mg PO QAM losartan 100 mg Tablet 100 mg PO QAM Centrum Silver Tablet 1 tab PO QAM tiotropium bromide [Spiriva with HandiHaler] 18 mcg Capsule, W/Inhalation Device 1 cap INHALATION DAILY Rx Instructions: puncture 1 cap using device; one dose = 2 inhalations cholecalciferol (vitamin D3) [Vitamin D3] 25 mcg (1,000 unit) Tablet 25 mcg PO QAM hydrochlorothiazide 12.5 mg Tablet 12.5 mg PO QAM budesonide-formoterol [Symbicort] 160-4.5 mcg/actuation Hfa Aerosol Inhaler 1 inh INHALATION DAILY zinc 1 tab PO QAM hydromorphone [Dilaudid] 4 mg Tablet 4 mg PO Q4H PRN (Reason: Pain) Fish Oil 1 tab PO DAILY Discharge Orders: Discharge Order (Routine); Ordered 04/29/24 Ordered By: Jj Almodovar Admission Data Admit Date/Time: 04/25/24 11:43 Attending Provider: Jj Almodovar Admit Provider: Jj Almodovar Primary Care Provider: Kwadwo Marmolejo Other Providers: Emily Nagel
--- NOTE | 2024-04-29 12:11 | Hospitalist Progress Note ---
Date of Service April 29, 2024 Assessment & Plan (1) Rheumatoid arthritis: (2) Hypertension: (3) History of lung cancer: (4) Neurogenic claudication due to lumbar spinal stenosis: Plan Patient is an 83-year-old female with a past medical history of RA, lung CA s/p lobectomy of left lower lung, HTN who presents to the hospital on 04/25/2024 and is s/p L4-S1 decompression and fusion. Lumbar spinal stenosis S/p L4-S1 decompression 04/25 Pain management per ortho Wound management per ortho PT/OT as appropriate DVT prophylaxis per ortho Incentive spirometry Monitor H&H for acute blood loss anemia; Pre-op Hgb: 11.4, has been stable postop Continue to monitor Acute kidney Injury Creatinine WNL last month, 1.6 on exam Downtrending Hold losartan/HCTZ, 500 cc LR x 1 on initial exam Will give 1L NSS at 80 Continue to monitor Improving, Cr wnl on discharge at 0.9 PCP follow up for continued monitoring Hx HTN: Continue amlodipine, held HCTZ/losartan with MITESH, can resume on discharge BP has been stable PCP f/u for continued monitoring Hx RA: Hold Plaquenil at this time Resume on discharge Hx lung CA s/p left lower lobe lobectomy: Continue home inhalers Admission and Anticipated Discharge Date Admission Date: April 25, 2024 Subjective Patient was seen sitting in the chair beside the bed. Stated she felt tired today Discussion that her creatinine levels had improved to normal. Review of Systems Review of Systems: All systems reviewed & are unremarkable except as noted in Subjective Physical Exam Physical Exam: General: Alert, oriented. No acute distress Psych: Appropriate mood and affect Neuro: difficulty with movements HEENT: NC/AT CV: RRR, + murmur Resp: Breath sounds clear bilaterally, no increased effort of breathing Abdomen: Soft, nontender Extremities: edema in lower extremities bilaterally. Results & Data Results & Data Vital Signs (Past 12 Hours) Vital Signs BP 04/29/24 03:39 148/82 H
[2024-04-30] MEDS: PROMETHAZINE 12.5 MG/50.5 ML BAG IV PRN (02:01)
[2024-04-30] MEDS: amLODIPine BESYLATE 5 MG TAB PO ONE (06:13)
[2024-04-30] MEDS: ACETAMINOPHEN 1,000 MG/100 ML VIAL IV STA (06:13)
[2024-04-30 07:39] LABS: Hematocrit (blood only) 26.9 % (37.0-47.0); Hemoglobin 9.3 g/dl (12.0-16.0); Mean Corpuscular Hemoglobin 31.8 pg (25.0-34.0); Mean Corpuscular Hgb Conc 34.6 g/dL (32.0-36.0); Mean Corpuscular Volume 92.1 fL (80.0-100.0); Mean Platelet Volume 10.4 fL (9.4-12.4); Platelet Count 182 K/uL (130-400); RDW Coefficient of Variation 11.5 % (11.5-14.5); RDW Standard Deviation 39.2 fL (36.4-46.3); Red Blood Count 2.92 M/uL (4.20-5.40); White Blood Count 7.89 K/ul (4.8-10.8)
[2024-04-30 08:02] LABS: BUN Creatinine Ratio 19.3 (10-20); Calcium 8.6 mg/dl (8.6-10.3); Creatinine Clr Calc Pharmacy 35.9 ml/min; Potassium 3.9 mmol/L (3.5-5.1)
--- NOTE | 2024-04-30 08:35 | Orthopedic Progress Note ---
Date of Service April 30, 2024 Assessment & Plan (1) Neurogenic claudication due to lumbar spinal stenosis: Plan: Abigail is postoperative day 5 status post lumbar decompression and fusion L4-S1. Will continue with physical therapy. DVT prophylaxis is in the form teds and SCDs. Continue with pain control. Continue with aggressive bowel regimen. She is orthopedically stable for discharge to rehab once bed becomes available and authorization obtained. Admission and Anticipated Discharge Date Admission Date: April 25, 2024 Subjective Abigail is postoperative day 5 status post L4-S1 decompression and fusion. She is doing well. She is passing flatus but no significant bowel movement. Denies nausea vomiting or abdominal pain. Yesterday in physical therapy ambulating 120 feet x 2. No radicular leg pain. Back pain is controlled. H&H is morning are 9.3 and 26.9 respectively. Family and the patient decided yesterday that she is going to go to a correction facility upon discharge. This paperwork was started yesterday with authorization referral out as well. Review of Systems Review of Systems: All systems reviewed & are unremarkable except as noted in HPI & below Physical Exam Physical Exam: She sitting up in bed eating breakfast in no acute distress Alert and oriented x 3 Dressing is clean dry and intact Strength intact bilateral lower extremities Abdomen soft and nondistended Results & Data Vital Signs (Past 12 Hours) Vital Signs Temp Pulse Resp BP BP Pulse Ox O2 Del Method 04/30/24 07:29 36.4 C L 79 16 159/73 H 94 Room Air 04/30/24 05:23 172/84 H 04/29/24 22:49 Room Air 04/29/24 22:37 36.6 C 88 16 171/80 H 98 Room Air
--- NOTE | 2024-04-30 11:01 | Hospitalist Progress Note ---
Date of Service April 30, 2024 Assessment & Plan (1) Rheumatoid arthritis: (2) Hypertension: (3) History of lung cancer: (4) Neurogenic claudication due to lumbar spinal stenosis: Plan Patient is an 83-year-old female with a past medical history of RA, lung CA s/p lobectomy of left lower lung, HTN who presents to the hospital on 04/25/2024 and is s/p L4-S1 decompression and fusion. Lumbar spinal stenosis S/p L4-S1 decompression 04/25 Pain management per ortho Wound management per ortho PT/OT as appropriate DVT prophylaxis per ortho Incentive spirometry Monitor H&H for acute blood loss anemia; Pre-op Hgb: 11.4, has been stable postop Continue to monitor Acute kidney Injury Creatinine WNL last month, 1.6 on exam Downtrending Hold losartan/HCTZ, 500 cc LR x 1 on initial exam Will give 1L NSS at 80 Continue to monitor Improving, Cr wnl on discharge at 0.9 PCP follow up for continued monitoring Hx HTN: Continue amlodipine, held HCTZ/losartan with MITESH, can resume on discharge BP has been stable PCP f/u for continued monitoring Hx RA: Hold Plaquenil at this time Resume on discharge Hx lung CA s/p left lower lobe lobectomy: Continue home inhalers Diet: regular DVT prophylaxis: SCDs, further DVT prophylaxis per primary team Dispo: per PT/OT recs Admission and Anticipated Discharge Date Admission Date: April 25, 2024 Subjective patient was seen sleeping in bed Awakened for exam Denied acute concerns awaiting placement at rehab Review of Systems Review of Systems: All systems reviewed & are unremarkable except as noted in Subjective Physical Exam Physical Exam: General: Alert, oriented. No acute distress Psych: Appropriate mood and affect Neuro: difficulty with movements HEENT: NC/AT CV: RRR, + murmur Resp: Breath sounds clear bilaterally, no increased effort of breathing Abdomen: Soft, nontender Extremities: edema in lower extremities bilaterally. Results & Data Results & Data Vital Signs (Past 12 Hours) Vital Signs Temp Pulse Resp BP BP Pulse Ox O2 Del Method 04/30/24 08:32 Room Air 04/30/24 07:29 36.4 C L 79 16 159/73 H 94 Room Air 04/30/24 05:23 172/84 H
[2024-04-30] MEDS: HYDROmorphone HCL 4 MG TAB PO PRN (15:06)
[2024-04-30] MEDS: FAMOTIDINE 20 MG TAB PO PRN (23:49)
[2024-05-01] MEDS: amLODIPine BESYLATE 5 MG TAB PO SCH (07:11)
--- NOTE | 2024-05-01 08:25 | Orthopedic Progress Note ---
Date of Service May 01, 2024 Assessment & Plan (1) Neurogenic claudication due to lumbar spinal stenosis: Plan: Abigail is postoperative day 6 status post L4-S1 decompression and fusion. She is orthopedically stable. Continue with physical therapy. Work on aggressive bowel regimen. DVT prophylaxis is in the form teds and SCDs. Awaiting discharge to rehab in [place], hopefully tomorrow. Admission and Anticipated Discharge Date Admission Date: April 25, 2024 Subjective Abigail is postoperative day 6 status post L4-S1 decompression and fusion. She is passing flatus but no bowel movement recently. Denies abdominal pain or nausea or vomiting. Yesterday in physical therapy Ambulatiing 125 feet x 2. Pain is controlled. Currently awaiting placement at rehab in the [place] area. Review of Systems Review of Systems: All systems reviewed & are unremarkable except as noted in HPI & below Physical Exam Physical Exam: She is laying in bed in no acute distress alert and oriented x 3 abdomen is soft dressing is clean dry and intact lumbar spine Strength is intact bilateral lower extremities Results & Data Vital Signs (Past 12 Hours) Vital Signs Temp Pulse Resp BP BP Pulse Ox O2 Del Method 05/01/24 07:27 36.3 C L 60 16 173/74 H 96 Room Air 05/01/24 07:24 Room Air 05/01/24 05:18 133/77 05/01/24 00:20 36.4 C L 86 14 170/70 H 94 Room Air 04/30/24 23:36 36.4 C L 102 H 14 186/83 H 100 Room Air
[2024-05-01 08:34] LABS: Hematocrit (blood only) 27.2 % (37.0-47.0); Hemoglobin 9.4 g/dl (12.0-16.0); Mean Corpuscular Hemoglobin 32.1 pg (25.0-34.0); Mean Corpuscular Hgb Conc 34.6 g/dL (32.0-36.0); Mean Corpuscular Volume 92.8 fL (80.0-100.0); Mean Platelet Volume 10.5 fL (9.4-12.4); Platelet Count 220 K/uL (130-400); RDW Coefficient of Variation 11.3 % (11.5-14.5); RDW Standard Deviation 38.4 fL (36.4-46.3); Red Blood Count 2.93 M/uL (4.20-5.40); White Blood Count 7.44 K/ul (4.8-10.8)
[2024-05-01 08:51] LABS: BUN Creatinine Ratio 14.4 (10-20); Creatinine Clr Calc Pharmacy 35.1 ml/min; Potassium 4.2 mmol/L (3.5-5.1)
--- NOTE | 2024-05-01 11:52 | Hospitalist Progress Note ---
Date of Service May 01, 2024 Assessment & Plan (1) Rheumatoid arthritis: (2) Hypertension: (3) History of lung cancer: (4) Neurogenic claudication due to lumbar spinal stenosis: Plan Patient is an 83-year-old female with a past medical history of RA, lung CA s/p lobectomy of left lower lung, HTN who presents to the hospital on 04/25/2024 and is s/p L4-S1 decompression and fusion. Pt currently awaiting rehab placement. Lumbar spinal stenosis S/p L4-S1 decompression 04/25 Pain management per ortho Wound management per ortho PT/OT as appropriate DVT prophylaxis per ortho Incentive spirometry Monitor H&H for acute blood loss anemia; Pre-op Hgb: 11.4, has been stable postop Continue to monitor Acute kidney Injury Creatinine WNL last month, 1.6 on exam Downtrending Hold losartan/HCTZ, 500 cc LR x 1 on initial exam Will give 1L NSS at 80 Continue to monitor Improving, Cr wnl on discharge at 0.9 PCP follow up for continued monitoring Hx HTN: Continue amlodipine, held HCTZ/losartan with MITESH, can resume on discharge BP has been stable PCP f/u for continued monitoring Hx RA: Hold Plaquenil at this time Resume on discharge Hx lung CA s/p left lower lobe lobectomy: Continue home inhalers Diet: regular DVT prophylaxis: SCDs, further DVT prophylaxis per primary team Dispo: per PT/OT recs Admission and Anticipated Discharge Date Admission Date: April 25, 2024 Subjective patient was seen sitting up in bed doing a crossword puzzle Asking to have a shower according to nursing Otherwise denies acute concerns Review of Systems Review of Systems: All systems reviewed & are unremarkable except as noted in Subjective Physical Exam Physical Exam: General: Alert, oriented. No acute distress Psych: Appropriate mood and affect Neuro: difficulty with movements HEENT: NC/AT CV: RRR, + murmur Resp: Breath sounds clear bilaterally, no increased effort of breathing Abdomen: Soft, nontender Extremities: edema in lower extremities bilaterally. Results & Data Results & Data Vital Signs (Past 12 Hours) Vital Signs Temp Pulse Resp BP BP Pulse Ox O2 Del Method 05/01/24 07:27 36.3 C L 60 16 173/74 H 96 Room Air 05/01/24 07:24 Room Air 05/01/24 05:18 133/77 05/01/24 00:20 36.4 C L 86 14 170/70 H 94 Room Air
[2024-05-01 14:51] VITALS: O2SAT 94
[2024-05-01 22:07] VITALS: RESP 16
[2024-05-02 06:25] LABS: Hematocrit (blood only) 25.9 % (37.0-47.0); Hemoglobin 8.8 g/dl (12.0-16.0); Mean Corpuscular Hemoglobin 31.3 pg (25.0-34.0); Mean Corpuscular Volume 92.2 fL (80.0-100.0); Mean Platelet Volume 10.4 fL (9.4-12.4); Platelet Count 236 K/uL (130-400); RDW Coefficient of Variation 11.2 % (11.5-14.5); RDW Standard Deviation 38.5 fL (36.4-46.3); Red Blood Count 2.81 M/uL (4.20-5.40); White Blood Count 6.01 K/ul (4.8-10.8)
[2024-05-02 06:45] LABS: BUN Creatinine Ratio 12.8 (10-20); Calcium 9.1 mg/dl (8.6-10.3)
[2024-05-02 07:22] VITALS: BP 136/65; PULSE 85; TEMP 98.1
[2024-05-02] MEDS: ALUMINUM/MAGNESIUM SUSP 30 ML UDC PO PRN (09:34)
--- NOTE | 2024-05-02 12:00 | Discharge Summary ---
Date of Service May 02, 2024 Admission HPI Per Admitting Provider This is an 83-year-old female who presents with chronic persistent back and leg pain after failing course of nonoperative care is here for surgical intervention. Principal Diagnosis Lumbar spinal stenosis with neurogenic claudication Discharge Data Allergies Allergy/AdvReac Type Severity Reaction Status Date / Time morphine AdvReac Severe respiratory Verified 04/25/24 07:47 depression Consultations 04/25/24 13:31 Consult Hospitalist Routine Procedures Performed Operation Date: 04/25/24 09:05 Actual Procedures p L4-S1 Decompression and Fusion with Spinal Cord Monitoring(Not Applicable) - Jj Almodovar DO Ordered Studies 04/25/24 09:05 [place] lumbar spine 2-3V Routine Hospital Course (1) Neurogenic claudication due to lumbar spinal stenosis: Patient went multilevel lumbar depression fusion tolerated so stayed the orthopedic for postoperative. Postoperative she progressed steadily and appropriate throughout her stay. Strength steadily improving. Became more more independent. Subsequently she was discharged home. Discharge orders instructions from the chart for further review. Total Time Total Time Spent Total Time Spent (In Minutes): 20 minutes Discharge Plan Discharge Items Patient Disposition: Home - Self-Care Reason For Visit: Lumbar Pain, Lumbar Disc Disease with Radiculopath Discharge Diagnosis: Lumbar spinal stenosis with neurogenic claudication Activity: As commented below Lifting: No more than 5 pounds Bathing Comment: heber shower 04/30 Weightbearing: Full weightbearing Non-emergency contact: Primary Care Provider Call non-emergency contact if: you have any medication questions Follow-up/Referrals: PCP,NO [Physician] - Diet: Regular Addtl Attending Provider Instructions: ACTIVITY RECOMMENDATIONS: SELF CARE INSTRUCTIONS AFTER THORACIC/LUMBAR FUSIONS 1. You may walk to your tolerance. It is good exercise for your legs and back. Expect some back and intermittent leg aches and pains. 2. You may perform "counter-top" level activities (make a sandwich, ericka with a project, etc.). 3. No bending or lifting of more than 10 pounds or back twisting of any nature (roll like a log when turning in bed). 4. You may ride in a car for 20-30 minutes at a time. No driving until after your first visit with your doctor. 5. Frequent changes of position and restricting sitting to 30 minutes at a time will help limit the amount of back spasms and stiffness you may experience. 6. You may discontinue the use of ambulatory aids (cane, crutches, etc.) once your strength and confidence allow. 7. You may licensing worker the shower and let water strike your incision when you arrive home at least once daily. Do not take a tub bath, sit in a hot tub or go into a swimming pool until after your first recheck in the office. 8. You may resume previous diet. SPECIAL CARE INSTRUCTIONS: VERY IMPORTANT TO READ AND REVIEW A. Your surgical incision has been closed with a cosmetic suture under the skin that will dissolve in about 6 weeks. In 14 days, you can use a pair of clean scissors and cut the suture that is left outside of the skin at the ends of your incision. 1. The small skin tapes can be removed 7 days after surgery if they have not fallen off by that point. 2. You may keep the wound open to air as much as possible to promote healing after post-op day number 5 unless told otherwise by your doctor. 3. If you think the wound looks like it is becoming infected (redness or worsening drainage) and/or you are experiencing fever, chill or worsening back pain and muscle spasms, contact the office so that we may evaluate you as soon as possible. B. Complications are uncommon, but please contact us if you have any signs or symptoms of: 1. wound infection (fever higher than 102.5 degrees F, redness, separation of wound, drainage, or increasing pain from the incision) 2. blood clots in legs (pain, swelling, redness and warmth in legs) 3. urinary tract infection (fever higher than 102.5 degrees F, burning upon urination or increased frequency of urination) 4. nerve problems (inability to walk on your toes or heels, numbness, loss of bowel or bladder control) 5. any other symptoms that concern you C. Please call the office at if you have any concerns or questions about your operation or recovery. D. No smoking! Smoking drastically decreases the chance of a solid fusion. E. Do not take any anti-inflammatory medications (Indocin, Advil, Motrin, Aspirin, Naprosyn, etc.) as these may inhibit the chance of a solid fusion. Tylenol is okay to take for pain. MANAGING PAIN AFTER SPINAL SURGERY 1. Narcotic medication is intended for short-term use and will be provided for surgical pain. Surgical pain usually lasts for a period of 4-6 weeks. Narcotic medication includes Percocet, Vicodin, Darvocet, Tylenol #3 or Lortab. 2. Longer-term pain is more appropriately treated with non-narcotic medication such as Tylenol ES. 3. Muscle spasm is not appropriately treated with narcotics. Muscle relaxers such as Soma, Flexeril or Skelaxin can be used along with Tylenol ES. 4. Remember that we all live with some "aches and pains". This is not unusual or uncommon after an injury or as we get older. a. Back pain is expected and may include muscle spasms for 4 to 6 weeks after surgery. The pain should gradually improve. If the pain worsens for no apparent reason, please contact the office. b. Intermittent leg pain may also be experienced and should not be concerned about unless it worsens for no apparent reason. If so, please contact the office. 5. We will provide appropriate medication within the normal guidelines of their prescribed use. We will also be very cautious and aware of potential abuse and extended duration of patients' medication needs. a. Pain medications are for your comfort and to assist with sleep and rest so that the tissue can heal. They are not provided in order to return to normal activity and should not be used through the day. To do so or worsening pain at night can result from ongoing tissue damage and development of tolerance to the prescribed medicine. 6. Please allow 2-3 days to process refills. Prescriptions will not be mailed but must be picked up at the office. FOLLOW UP VISIT: Keep your scheduled follow-up appointment. Any questions, please call the office at . Pending Studies at Discharge: No Stand-Alone Forms: My [facility] [employer], Smoking Cessation Medications and DC Order Prescriptions: New tramadol 50 mg tablet 50 mg PO Q6H PRN (Reason: pain, moderate) Qty: 30 0RF oxycodone 5 mg tablet 5 mg PO Q6H PRN (Reason: pain) Qty: 30 0RF Continued prednisone 5 mg Tablet 5 mg PO QAM amlodipine 2.5 mg Tablet 2.5 mg PO QAM potassium chloride [Klor-Con M20] 20 mEq Tablet,Er Particles/Crystals 20 meq PO QAM ascorbic acid (vitamin C) [Vitamin C] 500 mg Tablet 500 mg PO QAM hydroxychloroquine [Plaquenil] 200 mg Tablet 300 mg PO QAM losartan 100 mg Tablet 100 mg PO QAM [id number] Tablet 1 tab PO QAM tiotropium bromide [Spiriva with HandiHaler] 18 mcg Capsule, W/Inhalation Device 1 cap INHALATION DAILY Rx Instructions: puncture 1 cap using device; one dose = 2 inhalations cholecalciferol (vitamin D3) [Vitamin D3] 25 mcg (1,000 unit) Tablet 25 mcg PO QAM hydrochlorothiazide 12.5 mg Tablet 12.5 mg PO QAM budesonide-formoterol [Symbicort] 160-4.5 mcg/actuation Hfa Aerosol Inhaler 1 inh INHALATION DAILY zinc 1 tab PO QAM hydromorphone [Dilaudid] 4 mg Tablet 4 mg PO Q4H PRN (Reason: Pain) Fish Oil 1 tab PO DAILY Discharge Orders: Discharge Order (Routine); Ordered 05/02/24 Ordered By: Jj Almodovar Admission Data Admit Date/Time: 04/25/24 11:43 Attending Provider: Jj Almodovar Admit Provider: Jj Almodovar Primary Care Provider: Kwadwo Marmolejo Other Providers: Emily Nagel. Other Interventions: Discharge Summary Assessment (RN) Last Done: 04/29/24 13:23
--- NOTE | 2024-05-02 16:29 | Hospitalist Progress Note ---
Date of Service May 02, 2024 Assessment & Plan (1) Rheumatoid arthritis: (2) Hypertension: (3) History of lung cancer: (4) Neurogenic claudication due to lumbar spinal stenosis: Plan Patient is an 83-year-old female with a past medical history of RA, lung CA s/p lobectomy of left lower lung, HTN who presents to the hospital on 04/25/2024 and is s/p L4-S1 decompression and fusion. Discharge was delayed as patient originally thought that she wanted acute rehab placement however on 05/02/2024 patient stating that she wanted to be discharged home. She was discharged home by her surgical team. Lumbar spinal stenosis S/p L4-S1 decompression 04/25 Pain management per ortho Wound management per ortho PT/OT as appropriate DVT prophylaxis per ortho Incentive spirometry Monitor H&H for acute blood loss anemia; Pre-op Hgb: 11.4, has been stable postop PCP followup for continued monitoring, hgb 8.8 on discharge Acute kidney Injury Creatinine WNL last month, 1.6 on exam Downtrending Hold losartan/HCTZ, 500 cc LR x 1 on initial exam Will give 1L NSS at 80 Continue to monitor Improving, Cr wnl on discharge at 1.09 PCP follow up for continued monitoring Hx HTN: Continue amlodipine, held HCTZ/losartan with MITESH, can resume on discharge BP has been stable PCP f/u for continued monitoring Hx RA: Hold Plaquenil at this time Resume on discharge Hx lung CA s/p left lower lobe lobectomy: Continue home inhalers Admission and Anticipated Discharge Date Admission Date: April 25, 2024 Subjective patient was seen in the a.m. stated that she just wanted to go home States she did not feel like she needed rehab anymore was "feeling better" Review of Systems Review of Systems: All systems reviewed & are unremarkable except as noted in Subjective Physical Exam Physical Exam: General: Alert, oriented. No acute distress Psych: Appropriate mood and affect Neuro: difficulty with movements HEENT: NC/AT CV: RRR, + murmur Resp: Breath sounds clear bilaterally, no increased effort of breathing Abdomen: Soft, nontender Extremities: edema in lower extremities bilaterally. Results & Data Results & Data Vital Signs (Past 12 Hours) Vital Signs Temp Pulse Resp BP Pulse Ox O2 Del Method 05/02/24 07:21 36.7 C 85 16 136/65 94 Room Air
== END 2024-05-02 16:05 | disposition home or self-care (01) | DRG 427 ==
LOC: ASU 07:23 → MERGE 09:05 → 3W 11:43